=== PATIENT | male | born 1970 | race Caucasian/White ===

== ENCOUNTER → 2016-09-03 | Outpatient (CLI) | payer BC | LOC: COL.RAD 07:25 | DX: N20.0 Calculus of kidney (principal); N28.89 Other specified disorders of kidney and ureter | CPT/HCPCS: Q9967 ==

== ENCOUNTER 2019-06-27 14:06 | Outpatient (CLI) | payer BC ==
[~2019-06-27] VITALS: Ht 175.3 cm; Wt 85.5 kg
[2019-06-27 15:10] VITALS: BP 148/72; PULSE 88; TEMP 97.3
[2019-06-27] MEDS ORDERED: COREG 25MG25 MG/TAB PO (16:06)
[2019-06-27] MEDS ORDERED: PRILOSEC 20MG20 MG PO (16:07)
[2019-06-27] MEDS ORDERED: PREDNISONE10 MG PO (16:08)
[2019-06-27] MEDS ORDERED: HUMIRA PEN PSO1 EACH IJ (16:09)
[2019-06-27] MEDS ORDERED: ULTRAM ER200 MG PO (16:11)
[2019-06-27] MEDS ORDERED: MULTI VITAMINS1 TAB PO (16:12)
== END 2019-06-27 16:40 | disposition home or self-care (01) ==
LOC: EUO 14:06
DX: L40.50 Arthropathic psoriasis, unspecified (principal)
CPT/HCPCS: J2930; J7050

== ENCOUNTER 2019-09-01 11:26 | Outpatient (CLI) | payer BC ==
[~2019-09-01] VITALS: Ht 175.3 cm; Wt 84.0 kg
[~2019-09-01 11:26] MED LIST: COREG 25MG25 MG/TAB PO; HUMIRA PEN PSO1 EACH IJ; MULTI VITAMINS1 TAB PO; PREDNISONE10 MG PO; PRILOSEC 20MG20 MG PO; ULTRAM ER200 MG PO
--- NOTE | 2019-09-01 12:00 | NUR ---
Here for PICC evaluation. According to the patient, he was unable to flush PICC today. PICC intact right upper arm with no cap on extension set. Extension set removed. cap applied to end of PICC and flushed with 20ml normal saline without difficulty with blood return noted. new extension set applied. cap applied to end of extension set and flushed with 20ml normal saline without difficulty or resistance. noted catheter out to at least 10cm. patient reported it has migrated out with dressing changes. his PICC cares are being provided at [facility]. They are aware of insertion site. will defer to them. patient to ask about this with his appointment on Thursday. voiced understanding of instructions.
[2019-09-01] MEDS ORDERED: CELEXA 20MG20 MG/TAB PO (12:14)
[2019-09-01 12:18] VITALS: BP 132/102; PULSE 70; TEMP 98.7
--- NOTE | 2019-09-01 14:17 | NUR ---
Pt arrived for evaluation of PICC.Per nurse pt reports PICC not flushing.Pt arrives with extension on end of PICC line,no PICC cap in place.Extension removed,PICC cap apllied and PICC flushes with blood return observed.Pt discharge after apt.
== END 2019-09-01 14:27 | disposition home or self-care (01) ==
LOC: EUO 11:26
DX: M00.042 Staphylococcal arthritis, left hand (principal); B95.61 Methicillin susceptible Staphylococcus aureus infection as the cause of diseases classified elsewhere; Z79.2 Long term (current) use of antibiotics

== ENCOUNTER 2021-03-08 16:35 | Inpatient (IN) | payer BC ==
[~2021-03-08] VITALS: Ht 175.3 cm; Wt 86.0 kg
[~2021-03-08 16:35] MED LIST changes: +CELEXA 20MG20 MG/TAB PO
[2021-03-08 17:44] LABS: BASO % 0.3 % (0.0-2.0); EOS % 0.1 % (0-4.0); GRAN # 5.9 K/mm3 (1.4-6.5); GRAN % 87.7 % (42.2-75.2); HEMATOCRIT 31.5 % (42.0-52.0); HEMOGLOBIN 10.3 g/dl (13.5-18.0); LYMPH # 0.5 K/mm3 (1.2-3.4); MEAN CELL VOLUME 92 fl (80.0-100.0); MEAN CORPUSCULAR HEMOGLOBIN 30 pg (27.0-31.0); MEAN CORPUSCULAR HGB CONC 33 g/dl (33.0-37.0); MEAN PLATELET VOLUME 8.3 fl (7.4-10.4); MONO # 0.2 K/mm3 (0.1-0.6); MONO % 3.2 % (1.7-9.3); PLATELET COUNT 215 K/mm3 (130-400); RED BLOOD COUNT 3.41 M/mm3 (4.20-5.60); REDCELL DISTRIBUTION WIDTH-CV 16.2 % (11.5-14.5)
[2021-03-08 18:08] LABS: BILIRUBIN,TOTAL 0.3 mg/dL (0.2-1.2); CALCIUM 9.6 mg/dL (8.4-10.2); CREATININE, serum 1.12 mg/dL (0.72-1.25); POTASSIUM 4.3 mmol/L (3.5-4.5); TOTAL PROTEIN 6.5 gm/dL (6.2-8.1)
[2021-03-08 18:17] LABS: TROPONIN-I 0.083 ng/mL (0.00-0.033)
[2021-03-08] MEDS ORDERED: COSENTYX S150 MG/1 M SQ (19:35)
[2021-03-08] MEDS ORDERED: ULTRAM ER200 MG PO (19:36)
[2021-03-08] MEDS ORDERED: ULTRAM 50MG TAB50 MG PO (19:36)
[2021-03-08] MEDS ORDERED: CELEXA40 MG PO (19:37)
[2021-03-08] MEDS ORDERED: COREG 25MG25 MG/TAB PO (19:37)
[2021-03-08] MEDS ORDERED: PRILOSEC 20MG20 MG PO (19:37)
[2021-03-08] MEDS ORDERED: HYGROTON50 MG PO (19:37)
[2021-03-08] MEDS ORDERED: ATIVAN 1MG T1 MG/TAB PO (19:38)
[2021-03-08] MEDS ORDERED: PREDNISONE10 MG PO (19:38)
[2021-03-08 19:39] LABS: ARTERIAL BLD GAS TCO2 CT 23.7; ARTERIAL BLOOD GAS BASE EXCESS -1.1 (-2-2); ARTERIAL BLOOD GAS HCO3 22.6 meq/L (22-26); ARTERIAL BLOOD GAS PCO2 34.2 mmHg (35-45); ARTERIAL BLOOD GAS PO2 67.4 mmHg (80-100); ARTERIAL BLOOD GAS pH 7.44 (7.35-7.45)
[2021-03-08 19:39] LABS: INR 1.2 (0.8-3.0); PROTHROMBIN TIME 13.3 SECONDS (9.7-12.8)
[2021-03-08] MEDS ORDERED: VITAMIN D31000 I1 PO (19:40)
[2021-03-08] MEDS ORDERED: PROBIOTIC ACID1 EAC3 PO (19:40)
[2021-03-08 19:45] LABS: C-REACTIVE PROTEIN 26.64 mg/dL (0.00-0.50); MAGNESIUM 1.9 mg/dL (1.6-2.6)
--- NOTE | 2021-03-08 21:31 | NUR ---
Arrived to unit alert, oriented x 4, able to verbalize needs, shortness of breath with ambulation, O2@ 8L per oxymask, telemetry in use, no c/o at this time,
[2021-03-08 21:37] VITALS: BP 121/95; PULSE 94; TEMP 98.3
--- NOTE | 2021-03-08 22:22 | NUR ---
Call placed to Dasia Whitaker re: critical troponin level, no new orders at this time. Continue to monitor.
[2021-03-08 23:00] VITALS: BP 124/86; PULSE 85; TEMP 97.9
[2021-03-08 23:53] LABS: COLLECTION METHOD CLEAN CATCH
[2021-03-09 00:07] LABS: MUCOUS Present /lpf; PH 5 (5-8); SQUAMOUS EPITHELIAL None Seen /hpf; URINE APPEARANCE Clear; URINE BACTERIA None Seen /hpf; URINE BILIRUBIN Negative (NEGATIVE); URINE BLOOD Negative (NEGATIVE); URINE COLOR Yellow; URINE GLUCOSE Negative (NEGATIVE); URINE KETONE Negative (NEGATIVE); URINE LEUKOCYTE ESTERASE Negative (NEGATIVE); URINE NITRATE Negative (NEGATIVE); URINE PROTEIN(semi-quant) Negative (NEGATIVE); URINE RBC 0-2 /hpf; URINE UROBILINOGEN Negative (NEGATIVE)
[2021-03-09 04:04] VITALS: BP 129/68; PULSE 76; TEMP 97.7
[2021-03-09 06:30] LABS: HEMOGLOBIN 10.7 g/dl (13.5-18.0); MEAN CELL VOLUME 94 fl (80.0-100.0); MEAN CORPUSCULAR HEMOGLOBIN 30 pg (27.0-31.0); MEAN CORPUSCULAR HGB CONC 32 g/dl (33.0-37.0); MEAN PLATELET VOLUME 8.9 fl (7.4-10.4); PLATELET COUNT 264 K/mm3 (130-400); RED BLOOD COUNT 3.58 M/mm3 (4.20-5.60); REDCELL DISTRIBUTION WIDTH-CV 16.2 % (11.5-14.5)
[2021-03-09 06:39] LABS: HEMATOCRIT 33.6 % (42.0-52.0)
[2021-03-09 06:47] LABS: ALBUMIN 2.8 gm/dL (3.5-5.0); BILIRUBIN,TOTAL 0.2 mg/dL (0.2-1.2); CALCIUM 9.5 mg/dL (8.4-10.2); CREATININE, serum 0.89 mg/dL (0.72-1.25); POTASSIUM 4.5 mmol/L (3.5-4.5); TOTAL PROTEIN 6.6 gm/dL (6.2-8.1)
[2021-03-09 07:31] VITALS: BP 123/86; PULSE 77; TEMP 98.6
--- NOTE | 2021-03-09 07:48 | NUR ---
Patient laying in bed upon entering the room. He is currently on 6L of O@ via OM. Patient is tolerating this amount of oxygen well. Patient did have a cup beside his bed with bloody sputum in it, sputum sample has already been collected. Patient does not have any concerns at this time.
[2021-03-09 08:26] LABS: LYMPHOCYTE 3 % (20.0-51.0); NEUTROPHILS 94 % (42.0-75.2)
[2021-03-09 08:27] LABS: ANISOCYTOSIS 1+; HYPOCHROMIA 2+; PLATELET ESTIMATE NORMAL (NORMAL)
[2021-03-09 11:36] VITALS: BP 128/91; PULSE 81; TEMP 98.4
--- NOTE | 2021-03-09 11:43 | NUR ---
Patient is requesting PRN ativan for his anxiety. This RN will be handing the patient off to GEOVANNA Shook.
--- NOTE | 2021-03-09 15:36 | NUR ---
SW attempted to call patient to complete intake as well as spouse Rosa [phone] unable to reach to complete intake. SW will continue to follow.
[2021-03-09 15:51] VITALS: BP 121/84; PULSE 81; TEMP 98
[2021-03-09 20:41] VITALS: BP 112/79; PULSE 69; TEMP 98.1
[2021-03-09 23:31] VITALS: BP 116/81; PULSE 73; TEMP 97.6
[2021-03-10 04:23] VITALS: BP 119/83; PULSE 82; TEMP 98.1
[2021-03-10 06:50] LABS: GRAN # 5.4 K/mm3 (1.4-6.5); HEMOGLOBIN 11.2 g/dl (13.5-18.0); LYMPH # 0.3 K/mm3 (1.2-3.4); LYMPH % 5.3 % (20.0-51.0); MEAN CELL VOLUME 91 fl (80.0-100.0); MEAN CORPUSCULAR HEMOGLOBIN 29 pg (27.0-31.0); MEAN CORPUSCULAR HGB CONC 32 g/dl (33.0-37.0); MEAN PLATELET VOLUME 9.1 fl (7.4-10.4); MONO # 0.3 K/mm3 (0.1-0.6); MONO % 4.7 % (1.7-9.3); PLATELET COUNT 306 K/mm3 (130-400); RED BLOOD COUNT 3.87 M/mm3 (4.20-5.60); REDCELL DISTRIBUTION WIDTH-CV 16.1 % (11.5-14.5)
[2021-03-10 06:59] LABS: HEMATOCRIT 35.2 % (42.0-52.0)
[2021-03-10 07:01] LABS: ALBUMIN 2.8 gm/dL (3.5-5.0); BILIRUBIN,TOTAL 0.2 mg/dL (0.2-1.2); CALCIUM 9.9 mg/dL (8.4-10.2); CREATININE, serum 0.93 mg/dL (0.72-1.25); POTASSIUM 4.4 mmol/L (3.5-4.5); TOTAL PROTEIN 6.7 gm/dL (6.2-8.1)
[2021-03-10 09:02] VITALS: BP 123/95; PULSE 70; TEMP 97.3
--- NOTE | 2021-03-10 09:51 | NUR ---
Patient exiting the bathroom upon entering the room. Patient was using his 4WW and was stable, gait was steady. Shift assessment completed and morning medications administered. Patient does not have any concerns at this time.
[2021-03-10 16:14] VITALS: BP 135/89; PULSE 79; TEMP 97.9
--- NOTE | 2021-03-10 18:01 | NUR ---
Patient has done well today. Patient is currently on 4L O2 via OM and tolerating it well. IV in the right AC was a little leaky, this RN did a dressing change on the IV and the leaking has ceased. Patient has not had any complaints or concerns today and overall feels a bit better than he had.
[2021-03-10 19:55] VITALS: BP 121/88; PULSE 66; TEMP 98.2
[2021-03-11] VITALS (7 sets, daily range): BP systolic 106–139; BP diastolic 70–99; PULSE 66–94; TEMP 97.7–98.6
--- NOTE | 2021-03-11 04:55 | NUR ---
Rested quietly throughout night, increased O2 to 7L over assistant casino shift manager to meet oxygen demand to maintain SPO2, VS stable, tolerating covid medication regimen w/o difficulty, ambulates with walker in room.
[2021-03-11 07:40] LABS: BASO % 0.1 % (0.0-2.0); GRAN # 7.6 K/mm3 (1.4-6.5); GRAN % 87.4 % (42.2-75.2); HEMOGLOBIN 11.6 g/dl (13.5-18.0); LYMPH # 0.4 K/mm3 (1.2-3.4); LYMPH % 4.6 % (20.0-51.0); MEAN CELL VOLUME 91 fl (80.0-100.0); MEAN CORPUSCULAR HEMOGLOBIN 30 pg (27.0-31.0); MEAN CORPUSCULAR HGB CONC 33 g/dl (33.0-37.0); MEAN PLATELET VOLUME 9.1 fl (7.4-10.4); MONO # 0.6 K/mm3 (0.1-0.6); MONO % 6.7 % (1.7-9.3); PLATELET COUNT 348 K/mm3 (130-400); REDCELL DISTRIBUTION WIDTH-CV 15.9 % (11.5-14.5)
[2021-03-11 07:45] LABS: HEMATOCRIT 35.4 % (42.0-52.0)
[2021-03-11 07:49] LABS: ALBUMIN 2.8 gm/dL (3.5-5.0); BILIRUBIN,TOTAL 0.3 mg/dL (0.2-1.2); CALCIUM 10.1 mg/dL (8.4-10.2); CREATININE, serum 1.04 mg/dL (0.72-1.25); POTASSIUM 4.2 mmol/L (3.5-4.5); TOTAL PROTEIN 6.4 gm/dL (6.2-8.1)
--- NOTE | 2021-03-11 08:51 | NUR ---
Patient sleeping upon entering the room. Requested to use the bathroom before receiving his IV medications. Patient ambulated to the bathroom w/ his 4WW. Patient is stable with a steady gait. Patient informed this nurse that last night when his IV was running, he had some burning and leaking from the IV site. New IV to be started.
--- NOTE | 2021-03-11 09:04 | NUR ---
New IV was started by GEOVANNA Jimenez. 20G Left Forearm.
--- NOTE | 2021-03-11 09:10 | NUR ---
SW contacted the patient to discuss discharge plan. The patient lives in [place] with his , Rosa (ph#[phone]), and their children. He reports independence with ADLs and has a walker. The patient's PCP is Dr. Robert Zhang and he receives his [facility] from [facility] He reports no difficulties obtaining his meds. The patient does not have a DPOA-HC and he was not interested in completing one at this time. The patient plans to return home with his family upon discharge. He is currently requiring 4 liters of oxygen. SW to continue to monitor. *Discharge plan: home with family*
--- NOTE | 2021-03-11 17:38 | NUR ---
Patient has been doing well today. Has not had any complaints. Remains on 3L O2 via NC, tolerating it well.
[2021-03-12 03:50] VITALS: BP 107/79; PULSE 75; TEMP 98.6
[2021-03-12 07:18] LABS: HEMOGLOBIN 11.3 g/dl (13.5-18.0); MEAN CELL VOLUME 90 fl (80.0-100.0); MEAN CORPUSCULAR HEMOGLOBIN 30 pg (27.0-31.0); MEAN CORPUSCULAR HGB CONC 33 g/dl (33.0-37.0); MEAN PLATELET VOLUME 8.7 fl (7.4-10.4); PLATELET COUNT 328 K/mm3 (130-400); RED BLOOD COUNT 3.78 M/mm3 (4.20-5.60); REDCELL DISTRIBUTION WIDTH-CV 15.6 % (11.5-14.5)
[2021-03-12 07:24] LABS: HEMATOCRIT 34.1 % (42.0-52.0)
[2021-03-12 08:45] VITALS: BP 132/93; PULSE 68; TEMP 98.4
[2021-03-12 08:50] LABS: ALBUMIN 2.7 gm/dL (3.5-5.0); BILIRUBIN,TOTAL 0.3 mg/dL (0.2-1.2); C-REACTIVE PROTEIN 5.99 mg/dL (0.00-0.50); CALCIUM 9.6 mg/dL (8.4-10.2); CREATININE, serum 0.87 mg/dL (0.72-1.25); TOTAL PROTEIN 6.2 gm/dL (6.2-8.1)
[2021-03-12 09:21] LABS: ANISOCYTOSIS 1+; LYMPHOCYTE 11 % (20.0-51.0); NEUTROPHILS 77 % (42.0-75.2); PLATELET ESTIMATE NORMAL (NORMAL)
--- NOTE | 2021-03-12 09:30 | NUR ---
PT DENIES ANY COMPLAINTS, ALERT AND ORIENTED X 4, LEFT FOREARM IV WAS BURNING AND HURTING DURING FLUSH WITH INABILITY TO FLUSH; STARTED NEW IV IN LEFT AC AND FLUSHED WITH NO COMPLICATIONS. NO FURTHER CONCERNS.
[2021-03-12] MEDS ORDERED: OMNICEF 300MG300 MG PO (12:01)
[2021-03-12] MEDS ORDERED: DOXYCYCLINE HY100 MG PO (12:01)
[2021-03-12] MEDS ORDERED: PREDNISONE20 MG PO (12:03)
[2021-03-12] MEDS ORDERED: PROAIR HFA0.09 MG/AC IH (12:04)
[2021-03-12 12:58] VITALS: BP 125/96; PULSE 77; TEMP 98.6
--- NOTE | 2021-03-12 13:10 | NUR ---
The patient qualified for 3 liters of oxygen. SHRUTI notified the patient. He lives in [place] with his . SHRUTI informed him of the DME company in [place]. The patient was open to getting the oxygen from [facility] and he requested that SW contact his . SHRUTI then contacted the patient's , Rosa, to update. Rosa would prefer getting the oxygen from [facility] as well. She states that she can poultry picking machine tender the oxygen on the way to get the patient. SHRUTI contacted and faxed the oxygen order to [facility]. The commercial representative reports that they will contact the patient's , once the order is ready. SHRUTI updated Rosa and she was in agreement to the plan. SHRUTI updated the patient's RN. The patient is to discharge back home with his today, 03/12. No additional needs at this time.
== END 2021-03-12 14:30 | disposition home or self-care (01) | DRG 177 ==
LOC: COL.ER 16:35 → MEDICAL 19:21
PROVIDERS: Nurse Practitioner Family; Physician Assistant
PROC: XW033E5 Introduction of Remdesivir Anti-infective into Peripheral Vein, Percutaneous Approach, New Technology Group 5 (ICD-10-PCS; principal; 2021-03-08)
DX: U07.1 COVID-19 (principal); J12.82 Pneumonia due to coronavirus disease 2019; J96.01 Acute respiratory failure with hypoxia; I21.A1 Myocardial infarction type 2; N17.9 Acute kidney failure, unspecified; D84.821 Immunodeficiency due to drugs; R04.2 Hemoptysis; L40.50 Arthropathic psoriasis, unspecified; F32.A Depression, unspecified; F41.9 Anxiety disorder, unspecified; M50.30 Other cervical disc degeneration, unspecified cervical region; M51.36 Other intervertebral disc degeneration, lumbar region; G56.02 Carpal tunnel syndrome, left upper limb; E83.52 Hypercalcemia; T50.995A Adverse effect of other drugs, medicaments and biological substances, initial encounter; D64.9 Anemia, unspecified; G89.29 Other chronic pain; I12.9 Hypertensive chronic kidney disease with stage 1 through stage 4 chronic kidney disease, or unspecified chronic kidney disease; N18.9 Chronic kidney disease, unspecified; Z96.651 Presence of right artificial knee joint; Z73.0 Burn-out; Z79.52 Long term (current) use of systemic steroids
CPT/HCPCS: 99223-AI; 99232-AI; 99239; J0696; J1100; J7030; J7050; Q9967

== ENCOUNTER 2021-09-17 10:11 | Inpatient (IN) | payer BC ==
[2021-09-17] VITALS (13 sets, daily range): BP systolic 102–118; BP diastolic 56–91; PULSE 60–98; TEMP 97.6–98.3
[~2021-09-17] VITALS: Wt 88.6 kg
[~2021-09-17 10:11] MED LIST changes: +ATIVAN 1MG T1 MG/TAB PO; +CELEXA40 MG PO; +COSENTYX S150 MG/1 M SQ; +DOXYCYCLINE HY100 MG PO; +HYGROTON50 MG PO; +OMNICEF 300MG300 MG PO; +PREDNISONE20 MG PO; +PROAIR HFA0.09 MG/AC IH; +PROBIOTIC ACID1 EAC3 PO; +ULTRAM 50MG TAB50 MG PO; +VITAMIN D31000 I1 PO
[2021-09-17 10:39] LABS: BASO # 0.1 K/mm3 (0.0-0.2); BASO % 0.4 % (0.0-2.0); EOS # 0.1 K/mm3 (0.0-0.7); EOS % 0.9 % (0.0-4.0); GRAN # 8.2 K/mm3 (1.4-6.5); GRAN % 71.3 % (42.2-75.2); LYMPH # 1.7 K/mm3 (1.2-3.4); LYMPH % 15.1 % (20.0-51.0); MEAN CELL VOLUME 95 fl (80.0-100.0); MEAN CORPUSCULAR HGB CONC 30 g/dl (33.0-37.0); MEAN PLATELET VOLUME 9.1 fl (7.4-10.4); MONO # 1.3 K/mm3 (0.1-0.6); MONO % 11.3 % (1.7-9.3); PLATELET COUNT 331 K/mm3 (130-400); RED BLOOD COUNT 2.31 M/mm3 (4.20-5.60); REDCELL DISTRIBUTION WIDTH-CV 16.2 % (11.5-14.5)
[2021-09-17 10:40] LABS: HEMATOCRIT 21.9 % (42.0-52.0); MEAN CORPUSCULAR HEMOGLOBIN 29 pg (27-31)
[2021-09-17 10:41] LABS: HEMOGLOBIN 6.6 g/dl (13.5-18.0)
[2021-09-17 10:45] LABS: INR 1.2 (0.8-3.0); PROTHROMBIN TIME 14.3 SECONDS (9.7-12.8)
[2021-09-17 10:55] LABS: ALBUMIN 3.1 gm/dL (3.5-5.0); BILIRUBIN,TOTAL 0.3 mg/dL (0.2-1.2); CALCIUM 8.5 mg/dL (8.4-10.2); CREATININE, serum 1.17 mg/dL (0.72-1.25); POTASSIUM 4.2 mmol/L (3.5-4.5); TOTAL PROTEIN 5.6 gm/dL (6.2-8.1)
[2021-09-17] MEDS ORDERED: STELARA45 MG/0.1 SQ (12:24)
--- NOTE | 2021-09-17 13:00 | NUR ---
PATIENT ARRIVED TO UNIT IN STABLE CONDITION WITH BLOOD TRANSFUSION RUNNING AT 150ML PER HOUR. NO SIGNS OF REACTION AT THIS TIME. VITALS WNL. WILL TRANSFUSE SECOND UNIT ORDERED.
--- NOTE | 2021-09-17 15:44 | NUR ---
PATIENT LEFT UNIT FOR EGD PROCEDURE AT THIS TIME IN STABLE CONDITION
--- NOTE | 2021-09-17 18:59 | NUR ---
Patient's second unit of blood completed prior to this nurse receiving report around 1830. Spoke with JAMIE Franco. [facility] at 1930. Called and notified lab.
[2021-09-17 20:24] LABS: HEMOGLOBIN 7.7 g/dl (13.5-18.0)
--- NOTE | 2021-09-17 22:48 | NUR ---
Patient assessed around 2049. Alert and oriented, and able to make needs known. Denies having pain and discomfort at this time. Peripheral IV to left forearm with IV fluids running per orders. INT to right AC. Denies SOB and dyspnea. LS CTA. HRR. Telemetry in place. BSAx4. Patient tolerating bowel prep well. Having liquid, dark red bloody stools. No edema. Voices no questions, needs or concerns at this time. Aware that he is NPO after midnight. In bed with call light within reach.
[2021-09-18] VITALS (12 sets, daily range): BP systolic 113–137; BP diastolic 68–98; PULSE 50–100; TEMP 97.4–99.1
--- NOTE | 2021-09-18 05:48 | NUR ---
IV fluids continue per orders. Patient reports liquid, bloody stools. Reported level 5 pain to hands this morning, and given PRN Tramadol as requested for pain. Voices no further questions, needs, or concerns at this time. Completed bowel prep, and has been NPO since midnight, except took medication with sips of water. In bed with call light within reach.
[2021-09-18 06:04] LABS: BASO % 0.3 % (0.0-2.0); EOS # 0.1 K/mm3 (0.0-0.7); EOS % 0.6 % (0.0-4.0); GRAN # 7.1 K/mm3 (1.4-6.5); GRAN % 73.6 % (42.2-75.2); LYMPH # 1.2 K/mm3 (1.2-3.4); LYMPH % 12.5 % (20.0-51.0); MEAN CELL VOLUME 91 fl (80.0-100.0); MEAN CORPUSCULAR HGB CONC 32 g/dl (33.0-37.0); MEAN PLATELET VOLUME 8.9 fl (7.4-10.4); MONO # 1.1 K/mm3 (0.1-0.6); MONO % 11.7 % (1.7-9.3); PLATELET COUNT 246 K/mm3 (130-400); RED BLOOD COUNT 2.47 M/mm3 (4.20-5.60); REDCELL DISTRIBUTION WIDTH-CV 16.6 % (11.5-14.5)
[2021-09-18 06:07] LABS: HEMATOCRIT 22.4 % (42.0-52.0); HEMOGLOBIN 7.2 g/dl (13.5-18.0); MEAN CORPUSCULAR HEMOGLOBIN 29 pg (27-31)
[2021-09-18 06:37] LABS: CALCIUM 7.8 mg/dL (8.4-10.2); CREATININE, serum 0.93 mg/dL (0.72-1.25); POTASSIUM 3.8 mmol/L (3.5-4.5)
--- NOTE | 2021-09-18 07:32 | NUR ---
PT RESTING IN BED. MORNING IV MEDICATIONS GIVEN, PO MEDICATIONS HELD. NPO FOR COLONOSCOPY. SHIFT ASSESSMENT COMPLETED. PT REPORTS HANDS ARE SWELLING AND ACHING DUE TO ARTHRITIS. NS INFUSING AT 100ML/HR. PT REPORTS COMPLETING HIS BOWEL PREP, HASN'T HAD A STOOL THIS AM. UPDATED ON POC. CONTINUING TO MONITOR.
--- NOTE | 2021-09-18 10:11 | NUR ---
Initial visit; Patient thanked Footwear Sales Coordinator for offering prayer and God's blessings.
--- NOTE | 2021-09-18 11:40 | NUR ---
pupil personnel worker met with patient to discuss discharge plan. Patient currently lives at home with his Rosa ([phone]) in [place]. Patient reports to being fully independent with his ADL's but does utilize a walker to assist with mobility due to his psoriatic arthritis pinching nerves in his back. States he is scheduled to have back surgery in October to help with this. PCP is Dr. Zhang and he utilizes [facility] in [place] for his perscriptions. Patient has no home oxygen needs. Patient reports that he does not have a DPOA-HC estbalished and does not wish to create one at this time. Patient is planning on returning home once medically ready with no concerns. Discharge plan: Home with spouse
--- NOTE | 2021-09-18 20:30 | NUR ---
Initial shift assessment done-very pleasant, states having some pain to his joints 08/25, especially hands- will get his Tramadol now, aslo requesting his Ativan before bed tonight- will check with Dasia MILLIGAN if ok to give dose before bed-- Tele on,NSR 88/min, IV fluids of LR at 75cc/hr
[2021-09-19] VITALS (9 sets, daily range): BP systolic 108–129; BP diastolic 72–90; PULSE 90–115; TEMP 97.6–98.5
--- NOTE | 2021-09-19 05:18 | NUR ---
Quiet night- VSS,, voiding well per urinal, no requests, was given tramadol at start of shift for arthritis pain- will get CBC this morning
[2021-09-19 06:14] LABS: BASO % 0.3 % (0.0-2.0); EOS # 0.1 K/mm3 (0.0-0.7); EOS % 0.5 % (0.0-4.0); GRAN # 7.2 K/mm3 (1.4-6.5); GRAN % 74.4 % (42.2-75.2); LYMPH # 1.1 K/mm3 (1.2-3.4); LYMPH % 11.7 % (20.0-51.0); MEAN CORPUSCULAR HGB CONC 30 g/dl (33.0-37.0); MONO # 1.2 K/mm3 (0.1-0.6); MONO % 11.9 % (1.7-9.3); PLATELET COUNT 260 K/mm3 (130-400); RED BLOOD COUNT 2.24 M/mm3 (4.20-5.60); REDCELL DISTRIBUTION WIDTH-CV 17.2 % (11.5-14.5)
[2021-09-19 06:31] LABS: CALCIUM 8.2 mg/dL (8.4-10.2); CREATININE, serum 0.89 mg/dL (0.72-1.25); POTASSIUM 3.5 mmol/L (3.5-4.5)
[2021-09-19 06:33] LABS: HEMATOCRIT 21.9 % (42.0-52.0); MEAN CORPUSCULAR HEMOGLOBIN 29 pg (27-31)
[2021-09-19 06:35] LABS: HEMOGLOBIN 6.6 g/dl (13.5-18.0); MEAN CELL VOLUME 98 fl (80.0-100.0)
--- NOTE | 2021-09-19 07:59 | NUR ---
SPOKE TO BLOOD BANK ABOUT ORDER FOR PRB. BLOOD JEREZ CONFIRMS ODER RECEIVED AND STATES THAT IT WILL BE READY IN ABOUT 5 MINS.
--- NOTE | 2021-09-19 09:05 | NUR ---
PT RESTING QUIETLY IN BED. PT STATES THAT HE IS HAVING SOME PAIN IN HIS HANDS AND JOINTS SCHEDULED PAIN MEDS WERE GIVEN. PT HEMOGLOBIN 6.6 PT IS RECEIVING 1 UNIT OF PRBC CURRENTLY, TOLERATING WELL. PT ORDER BREAKFAST HIMSELF. PT HAS NO COMPLAINTS OR NEEDS AT THIS TIME. CALL LIGHT IS WITHIN REACH.
[2021-09-19 13:19] LABS: BASO % 0.3 % (0.0-2.0); EOS % 0.3 % (0.0-4.0); GRAN # 10.5 K/mm3 (1.4-6.5); GRAN % 80.6 % (42.2-75.2); LYMPH # 0.9 K/mm3 (1.2-3.4); LYMPH % 7.2 % (20.0-51.0); MEAN CORPUSCULAR HGB CONC 33 g/dl (33.0-37.0); MEAN PLATELET VOLUME 8.7 fl (7.4-10.4); MONO # 1.4 K/mm3 (0.1-0.6); MONO % 10.5 % (1.7-9.3); PLATELET COUNT 253 K/mm3 (130-400); RED BLOOD COUNT 2.84 M/mm3 (4.20-5.60); REDCELL DISTRIBUTION WIDTH-CV 16.3 % (11.5-14.5)
[2021-09-19 13:21] LABS: HEMATOCRIT 25.8 % (42.0-52.0); HEMOGLOBIN 8.4 g/dl (13.5-18.0); MEAN CELL VOLUME 91 fl (80.0-100.0); MEAN CORPUSCULAR HEMOGLOBIN 30 pg (27-31)
--- NOTE | 2021-09-19 13:51 | NUR ---
INFORMED PT OF HGB 8.4 AND THAT DISCHARGE ORDERS ARE IN AND THAT PT IS ABLE TO GO HOME SINCE HIS HGB CAME UP. PT STATES THAT HE WILL CALL HIS AND HAVE HER COME GET HIM. INFORMED PT TO LET US KNOW WHEN SHE WAS HERE AND I WOULD COME GIVE HIM HIS DISCHARGE PAPERWORK. PT VOICES UNDERSTANDING. NO OTHER NEEDS WERE VOICED. CALL LIGHT IS WITHIN REACH.
== END 2021-09-19 15:59 | disposition home or self-care (01) | DRG 379 ==
LOC: COL.ER 10:11 → MEDICAL 12:18
PROVIDERS: Internal Medicine Gastroenterology; Nurse Practitioner Primary Care; Physician Assistant; ADMIT Student in an Organized Health Care Education/Training Program
PROC: 0DJ08ZZ Inspection of Upper Intestinal Tract, Via Natural or Artificial Opening Endoscopic (ICD-10-PCS; principal; 2021-09-17 16:00)
PROC: 0W3P8ZZ Control Bleeding in Gastrointestinal Tract, Via Natural or Artificial Opening Endoscopic (ICD-10-PCS; 2021-09-18)
DX: K57.31 Diverticulosis of large intestine without perforation or abscess with bleeding (principal); L40.50 Arthropathic psoriasis, unspecified; M54.9 Dorsalgia, unspecified; G89.29 Other chronic pain; M25.569 Pain in unspecified knee; K21.9 Gastro-esophageal reflux disease without esophagitis; F32.A Depression, unspecified; F41.9 Anxiety disorder, unspecified; M50.30 Other cervical disc degeneration, unspecified cervical region; M51.36 Other intervertebral disc degeneration, lumbar region; G56.02 Carpal tunnel syndrome, left upper limb; I12.9 Hypertensive chronic kidney disease with stage 1 through stage 4 chronic kidney disease, or unspecified chronic kidney disease; N18.2 Chronic kidney disease, stage 2 (mild); D64.9 Anemia, unspecified; K64.2 Third degree hemorrhoids; K25.9 Gastric ulcer, unspecified as acute or chronic, without hemorrhage or perforation; T39.395A Adverse effect of other nonsteroidal anti-inflammatory drugs [NSAID], initial encounter; D72.823 Leukemoid reaction; Z96.651 Presence of right artificial knee joint; Z79.52 Long term (current) use of systemic steroids; Z23 Encounter for immunization
CPT/HCPCS: 99222-AI; 99233-AI; 99239; C9113; J1756; J2370; J2405; J2704; J2765; J7030; J7050; J7120; J7512; P9016